=== PATIENT | female | born 1995 | race Asian ===

== ENCOUNTER 2022-09-24 15:05 | Outpatient (CLI) | payer OTHER, SELFPAY ==
[2022-09-24 21:53] LABS: Cholesterol* 215 mg/dL (90-199); Glucose* 95 mg/dL (60-115)
[2022-09-24 21:54] LABS: HDL Cholesterol* 84 mg/dL (>=50); LDL Cholesterol Calculated 114 mg/dL (<100); Triglycerides* 86 mg/dL (40-149)
== END 2022-09-24 15:06 | disposition home or self-care (01) ==
PROVIDERS: PCP Physician Assistant Medical; Visit Provider Physician Assistant Medical
DX: Z00.00 Encounter for general adult medical examination without abnormal findings (principal); Z13.6 Encounter for screening for cardiovascular disorders; Z13.1 Encounter for screening for diabetes mellitus
CPT/HCPCS: 80061; 82947

== ENCOUNTER 2024-02-21 09:48 | Outpatient (CLI) | payer OTHER, SELFPAY ==
[2024-02-21 15:22] LABS: Chlamydia DNA Amplified* NOT DETECTED (No Detected); GC DNA Amplified* NOT DETECTED (No Detected)
[2024-02-25 19:49] LABS: HSV 1 Subtype by PCR Detected; HSV 2 Subtype by PCR Not Detected; Herpes Simplex Subtype Source Tissue
== END 2024-02-21 09:49 | disposition home or self-care (01) ==
PROVIDERS: PCP Physician Assistant Medical; Visit Provider Nurse Practitioner Family
DX: N89.8 Other specified noninflammatory disorders of vagina (principal); Z11.3 Encounter for screening for infections with a predominantly sexual mode of transmission
CPT/HCPCS: 87491; 87529; 87591

== ENCOUNTER 2025-02-21 14:45 | Outpatient (RCR) | payer OTHER, SELFPAY | END 2025-06-21 23:59 | disposition home or self-care (01) | PROVIDERS: PCP Physician Assistant Medical; Visit Provider Physician Assistant Medical | DX: M54.2 Cervicalgia (principal); M25.512 Pain in left shoulder; M25.511 Pain in right shoulder; Z51.89 Encounter for other specified aftercare | CPT/HCPCS: 97110; 97140; 97162 ==

== ENCOUNTER 2025-08-26 08:49 | Outpatient (CLI) | payer OTHER, SELFPAY | END 2025-08-26 08:50 | disposition home or self-care (01) | LOC: NFLDREF 08-31 21:40 | PROVIDERS: PCP Physician Assistant Medical; Referring Provider Physician Assistant Medical; Visit Provider Family Medicine | DX: Z00.00 Encounter for general adult medical examination without abnormal findings (principal) | CPT/HCPCS: 80053 ==